=== PATIENT | male | born 1980 | race Caucasian/White ===

== ENCOUNTER 2023-12-12 20:00 | Inpatient (IN) | payer OTHER ==
[2023-12-12 20:56] VITALS: BMI 24.6
[2023-12-12] MEDS ORDERED: HYDROCORTISONE 1% TOPICAL CREAM 30 GM TUBE TP PRN (22:11)
[2023-12-12] MEDS ORDERED: P-EPHED 60MG/TRIPROLIDI 2.5MG TABLET PO PRN (22:12)
[2023-12-12] MEDS ORDERED: MAG HYDROX/AL HYDROX/SIMETH 30 ML UNIT-DOSE CUP PO PRN (22:12)
[2023-12-12] MEDS ORDERED: NICOTINE POLACRILEX 2 MG GUM BUC PRN (22:12)
[2023-12-12] MEDS ORDERED: MAGNESIUM HYDROX 2400MG/30ML ORAL SUSPENSION 30 ML CUP PO PRN (22:12)
[2023-12-12] MEDS ORDERED: POLYETHYLENE GLYCOL (HEALTHYLAX) 3350 17 GM PACKET PO PRN (22:12)
[2023-12-12] MEDS ORDERED: NALOXONE HCL (KLOXXADO) 8 MG SPRAY NS PRN (22:12)
[2023-12-12] MEDS ORDERED: NALOXONE HCL 0.4 MG/ML VIAL IM PRN (22:12)
[2023-12-12] MEDS ORDERED: BENZONATATE 200 MG CAPSULE PO PRN (22:12)
[2023-12-12] MEDS ORDERED: LOPERAMIDE HCL 2 MG CAPSULE PO PRN (22:12)
[2023-12-12] MEDS ORDERED: guaiFENesin 600 MG TABLET.ER (FP) PO PRN (22:12)
[2023-12-12] MEDS ORDERED: DOCUSATE SODIUM 100 MG CAPSULE (FP) PO PRN (22:12)
[2023-12-12] MEDS ORDERED: ALBUTEROL SO4 HFA INHALER IH PRN (22:54)
[2023-12-12] MEDS ORDERED: ALBUTEROL SO4 0.083% IH SOL 2.5 MG/3 ML VIAL.NEB. NEB PRN (22:55)
[2023-12-13] MEDS: MELATONIN 5 MG TABLETS PO SCH (00:17)
[2023-12-13] MEDS: levETIRAcetam 500 MG TABLET (FP) PO SCH (00:17)
[2023-12-13] MEDS ORDERED: levETIRAcetam 500 MG TABLET (FP) PO ONE (01:11)
[2023-12-13] MEDS ORDERED: MELATONIN 5 MG TABLETS ONE (01:11)
[2023-12-13] MEDS: IBUPROFEN 600 MG TABLET (FP) PO PRN (01:45)
[2023-12-13] MEDS: DIVALPROEX SODIUM 500 MG TABLET E.C. PO SCH (03:10)
[2023-12-13] MEDS ORDERED: TUBERCULIN PPD 5 TU/0.1ML VIAL ID ONE (07:07)
[2023-12-13] MEDS: TUBERCULIN PPD 5 TU/0.1ML SYRINGE (IN PATIENT USE ONLY) ID ONE (07:08)
[2023-12-13] MEDS: PRENATAL VITAMINS W/ FOLIC ACID TABLET (FP) PO SCH (09:25)
[2023-12-13] MEDS: BENZOCAINE/MENTHOL (CHLORASEPTIC ) LOZENGE MM PRN (09:25)
[2023-12-13] MEDS: GABAPENTIN 400 MG CAPSULE PO SCH (13:27)
[2023-12-13] MEDS: NICOTINE 21 MG/24 HOURS TOPICAL PATCH TD SCH (13:27)
[2023-12-13] MEDS: THIAMINE HCL 100 MG TABLET (FP) PO SCH (21:31)
[2023-12-13] MEDS: hydrOXYzine PAMOATE 25 MG CAPSULE (FP) PO PRN (21:33)
[2023-12-14] MEDS: IBUPROFEN 400 MG TABLET (FP) PO PRN (02:46)
[2023-12-14] MEDS: BENZOCAINE/MENTH/CETYLPYRD CL 1 EACH LOZENGE MM PRN (02:47)
[2023-12-14] MEDS ORDERED: methaDONE HCL 10 MG TABLET PO SCH (06:00)
[2023-12-14] MEDS: ACETAMINOPHEN 325 MG TABLET (FP) PO PRN (06:38)
[2023-12-14 08:11] VITALS: BP 118/89; PULSE 86; RESP 17; TEMP 96.2
== END 2023-12-14 18:40 | disposition left against medical advice (07) | DRG 770 ==
LOC: YASAS 20:00 → Y3E 21:42
PROVIDERS: ADMIT Allergy & Immunology; ATTEND Psychiatry & Neurology Pain Medicine
PROC: HZ42ZZZ Group Counseling for Substance Abuse Treatment, Cognitive-Behavioral (ICD-10-PCS; principal; 2023-12-12)
DX: F14.20 Cocaine dependence, uncomplicated (principal); F11.20 Opioid dependence, uncomplicated; F13.10 Sedative, hypnotic or anxiolytic abuse, uncomplicated; F17.210 Nicotine dependence, cigarettes, uncomplicated; F31.9 Bipolar disorder, unspecified; F41.9 Anxiety disorder, unspecified; J44.9 Chronic obstructive pulmonary disease, unspecified
CPT/HCPCS: 0241U-QW; 80305; 93005; 93010

== ENCOUNTER 2024-04-30 13:19 | Inpatient (IN) | payer OTHER ==
[2024-04-30 14:25] VITALS: BMI 25.1
[2024-04-30] MEDS ORDERED: NALOXONE HCL 0.4 MG/ML VIAL IM PRN (14:57)
[2024-04-30] MEDS ORDERED: BENZONATATE 200 MG CAPSULE PO PRN (14:57)
[2024-04-30] MEDS ORDERED: POLYETHYLENE GLYCOL (HEALTHYLAX) 3350 17 GM PACKET PO PRN (14:57)
[2024-04-30] MEDS ORDERED: MAGNESIUM HYDROX 2400MG/30ML ORAL SUSPENSION 30 ML CUP PO PRN (14:57)
[2024-04-30] MEDS ORDERED: ONDANSETRON *ODT* 4 MG TABLET SL PRN (14:57)
[2024-04-30] MEDS ORDERED: NICOTINE POLACRILEX 2 MG GUM BUC PRN (14:57)
[2024-04-30] MEDS ORDERED: DICYCLOMINE HCL 10 MG CAPSULE PO PRN (14:57)
[2024-04-30] MEDS ORDERED: LOPERAMIDE HCL 2 MG CAPSULE PO PRN (14:57)
[2024-04-30] MEDS ORDERED: BISMUTH SUBSALICYLATE 524 MG/30 ML PO PRN (14:57)
[2024-04-30] MEDS ORDERED: guaiFENesin 600 MG TABLET.ER (FP) PO PRN (14:57)
[2024-04-30] MEDS ORDERED: NALOXONE (NARCAN) HCL 4 MG/0.1 ML SPRAY NS PRN (14:57)
[2024-04-30] MEDS ORDERED: BENZOCAINE/MENTHOL (CHLORASEPTIC ) LOZENGE MM PRN (14:57)
[2024-04-30] MEDS ORDERED: MAG HYDROX/AL HYDROX/SIMETH 30 ML UNIT-DOSE CUP PO PRN (14:57)
[2024-04-30] MEDS ORDERED: P-EPHED 60MG/TRIPROLIDI 2.5MG TABLET PO PRN (14:57)
[2024-04-30] MEDS: methaDONE HCL 10 MG TABLET PO ONE (18:22)
[2024-04-30] MEDS: METHOCARBAMOL 500 MG TABLET PO PRN (22:31)
[2024-04-30] MEDS: MELATONIN 5 MG TABLETS PO SCH (22:31)
[2024-04-30] MEDS: THIAMINE 100 MG TABLET PO SCH (22:31)
[2024-04-30] MEDS: levETIRAcetam 500 MG TABLET (FP) PO SCH (22:31)
[2024-04-30] MEDS: ACETAMINOPHEN 325 MG TABLET (FP) PO PRN (23:33)
[2024-05-01] MEDS: IBUPROFEN 600 MG TABLET (FP) PO PRN (05:43)
[2024-05-01] MEDS ORDERED: methaDONE HCL 10 MG TABLET PO SCH (06:00)
[2024-05-01] MEDS: PRENATAL VITAMINS W/ FOLIC ACID TABLET (FP) PO SCH (10:28)
[2024-05-01 10:31] LABS: HEMATOCRIT 35.8 % (35.4-49); HEMOGLOBIN 12.3 GM/dL (11.7-16.9); MCH 29.4 pg (25.7-33.7); MCHC 34.3 g/dl (32.0-35.9); MEAN CELL VOLUME 85.7 fl (80-96); MEAN PLT VOLUME 6.7 fl (7.5-11.1); PLATELET COUNT 227 10^3/uL (134-434); RBC 4.18 M/mm3 (4.00-5.60); RDW 13.9 % (11.9-15.9); WHITE BLOOD COUNT 4.8 K/mm3 (4.0-10.0)
[2024-05-01 10:47] LABS: POTASSIUM 4.2 mmol/L (3.5-5.1)
[2024-05-01 11:02] LABS: ALBUMIN 3.3 g/dl (3.4-5.0); BLOOD UREA NITROGEN 14.6 mg/dL (7-18); CALCIUM 8.6 mg/dL (8.5-10.1)
[2024-05-01 11:05] LABS: CREATININE 0.6 mg/dL (0.55-1.3)
[2024-05-01] MEDS: NICOTINE POLACRILEX 2 MG LOZENGE BC PRN (11:06)
[2024-05-01 11:07] LABS: BILIRUBIN,TOTAL 0.7 mg/dL (0.2-1); TOT PROT 6.2 g/dl (6.4-8.2)
[2024-05-01] MEDS: GABAPENTIN 100 MG CAPSULE PO SCH (14:16)
[2024-05-01] MEDS: IBUPROFEN 400 MG TABLET (FP) PO PRN (17:11)
[2024-05-01] MEDS: ALBUTEROL SO4 HFA INHALER IH PRN (22:45)
[2024-05-02 06:22] VITALS: PULSE 60
[2024-05-02 09:15] VITALS: BP 112/63; RESP 16; TEMP 99.3
== END 2024-05-02 12:32 | disposition home or self-care (01) | DRG 772 ==
LOC: YASAS 13:19 → Y3N 15:05
PROVIDERS: ADMIT Allergy & Immunology; ATTEND Psychiatry & Neurology Pain Medicine
PROC: HZ42ZZZ Group Counseling for Substance Abuse Treatment, Cognitive-Behavioral (ICD-10-PCS; principal; 2024-04-30)
DX: F14.20 Cocaine dependence, uncomplicated (principal); F11.20 Opioid dependence, uncomplicated; F17.210 Nicotine dependence, cigarettes, uncomplicated; F41.9 Anxiety disorder, unspecified; G40.909 Epilepsy, unspecified, not intractable, without status epilepticus; J44.9 Chronic obstructive pulmonary disease, unspecified; Z86.16 Personal history of COVID-19; Z56.0 Unemployment, unspecified; Z59.01 Sheltered homelessness
CPT/HCPCS: 0241U-QW; 36415; 80053; 80305; 80307; 85027; 86780; 93005; 93010

== ENCOUNTER 2024-06-04 16:16 | Inpatient (IN) | payer OTHER ==
[2024-06-04 17:02] VITALS: BP 107/69; PULSE 66; RESP 17; TEMP 97.3; BMI 25.3
== END 2024-06-05 06:56 | disposition home or self-care (01) | DRG 861 ==
LOC: YASAS 16:16 → Y3NR 21:27
PROVIDERS: ADMIT Allergy & Immunology; ATTEND Psychiatry & Neurology Pain Medicine
DX: Z53.29 Procedure and treatment not carried out because of patient's decision for other reasons (principal)
CPT/HCPCS: 80305; 80307

== ENCOUNTER 2024-06-04 21:39 | Emergency (ER) | payer OTHER ==
[2024-06-04 21:47] VITALS: RESP 18; BMI 25.1
[2024-06-04] MEDS ORDERED: DIVALPROEX SODIUM 500 MG TABLET E.C. ONE (22:46)
[2024-06-04] MEDS ORDERED: IBUPROFEN 400 MG TABLET (FP) PO ONE (22:47)
[2024-06-04] MEDS: DIVALPROEX SODIUM 500 MG TABLET E.C. PO ONE (22:55)
[2024-06-04] MEDS: IBUPROFEN 400 MG TABLET (FP) PO ONE (22:55)
[2024-06-05] MEDS ORDERED: ACETAMINOPHEN 325 MG TABLET (FP) ONE (03:43)
[2024-06-05] MEDS: ACETAMINOPHEN 500 MG TABLET (FP) PO ONE (03:47)
[2024-06-05 05:40] VITALS: BP 105/67; PULSE 53; TEMP 98
== END 2024-06-05 06:13 | disposition home or self-care (01) ==
LOC: JER 21:39
DX: F11.20 Opioid dependence, uncomplicated (principal); M79.602 Pain in left arm
CPT/HCPCS: 99283-25